=== PATIENT | male | born 1990 | race Caucasian/White ===

== ENCOUNTER 2020-02-17 18:08 | Emergency (ER) | payer BC ==
[2020-02-17] MEDS ORDERED: Ondansetron ODT 4 MG TAB ONE (18:26)
[2020-02-17 18:41] LABS: #Basophils 0.1 thou/uL (0.0-0.2); #Lymphocytes 2.8 thou/uL (1.20-3.40); #Monocytes 0.6 thou/uL (0.11-0.59); #Neutrophils 6.3 thou/uL (1.40-6.50); %Basophils 1.1 % (0.0-1.0); %Eosinophils 0.5 % (0.0-10.0); %Lymphocytes 28.5 % (21.0-51.0); %Monocytes 6.1 % (0.0-10.0); %Neutrophils 63.9 % (42.0-75.0); Hemoglobin 15.2 g/dL (14.0-18.0); Mean Corpuscular HGB CONC 33.2 g/dL (32.0-36.0); Mean Corpuscular Hemoglobin 28.8 pg (27.0-31.0); Mean Corpuscular Volume 86.9 fL (78.0-98.0); Mean Platelet Volume 8.2 fL (7.4-10.4); Platelet Count 281 thou/uL (130-400); RBC Distribution Width 11.4 % (11.5-14.5); Red Blood Cell (RBC) Count 5.28 mill/uL (4.70-6.10); White Blood Cell (WBC) Count 9.9 thou/uL (4.8-10.8)
[2020-02-17 18:54] LABS: Anion Gap 16 mmol/L (10-20); BUN (Urea Nitrogen) 11 mg/dL (8.9-20.6); Calc. Creatinine Clearance 0 mL/min (70-130); Calcium 9.2 mg/dL (7.8-10.44); Carbon Dioxide 22 mmol/L (22-29); Chloride 105 mmol/L (98-107); Estimated GFR-MDRD 65; Glucose 92 mg/dL (70-105); Potassium 3.4 mmol/L (3.5-5.1); Sodium 140 mmol/L (136-145)
--- NOTE | 2020-02-17 19:48 | CT ---
CT OF THE BRAIN WITHOUT CONTRAST: Date: 02-17-2020 FINDINGS: A noncontrast CT shows normal sized ventricles with no shift. No intracranial bleeding, mass or sign of stroke was found. There is no extraaxial hematoma. The skull appears intact and the visible parana mary jo sinuses are clear. IMPRESSION: No acute intracranial findings. POS: HOME
--- NOTE | 2020-02-17 19:49 | CT ---
CT CERVICAL SPINE: Date: 02-17-2020 FINDINGS: Spiral CT of the cervical spine was done following trauma. There is reversal of the normal cervical lordosis which may be due to muscle spasm. Otherwise, there were no acute traumatic findings. No fracture, dislocation, disc space narrowing, or soft tissue swel ling was seen. The C1-2 dens distance is normal. There are no signs of central canal or foraminal krista nosis. IMPRESSION: Straightening of the cervical spine, otherwise no acute findings. Preliminary report called to Dr. Holguin at 1906 on 02-17-2020. POS: HOME
== END 2020-02-17 19:45 | disposition home or self-care (01) ==
LOC: BURERS 18:08
DX: S09.90XA Unspecified injury of head, initial encounter (principal); M62.838 Other muscle spasm; V89.2XXA Person injured in unspecified motor-vehicle accident, traffic, initial encounter
CPT/HCPCS: 70450; 72125; 80048; 85025; 93005; Q0162